=== PATIENT | female | born 1995 | race Caucasian/White ===

== ENCOUNTER 2018-05-02 14:51 | Emergency (ER) | payer OTHER ==
[2018-05-02 16:15] LABS: HIV (1/2) Antibody/Antigen Non-Reactive (NonReactive); HIV 1/2 INDEX 0.08 S/CO (<1.00); Hep C IgG Ab Non-Reactive (NonReactive); Hep C Index 0.14 S/CO (0-0.79)
[2018-05-02 17:39] LABS: HBSAB Concentration 10.43 mIU/mL
== END 2018-05-02 16:54 | disposition home or self-care (01) ==
LOC: EDBD 14:51 → ERS 14:51
DX: Z77.21 Contact with and (suspected) exposure to potentially hazardous body fluids (principal)
CPT/HCPCS: 36415; 86706; 86803; 87389; 99283